=== PATIENT | male | born 1935 | race Caucasian/White ===

== ENCOUNTER 2020-10-04 21:35 | Inpatient (IN) | payer OTHER ==
[~2020-10-04] VITALS: Ht 180.3 cm; Wt 77.8 kg
[~2020-10-04 21:35] MED LIST: ASPI81CH43 PO; CLON0.5T10 PO; FOLITAB45 PO; MAGN241.4 PO; MET50T PO; OMEP20CA74 PO; PRAV20TA3 PO
[2020-10-04 22:43] LABS: Basophils # (auto) 0.1 10 ^3/uL (0-0.2); Basophils % (auto) 0.6 % (0.0-2.0); Eosinophils # (auto) 0.2 10 ^3/uL (0-0.8); Eosinophils % (auto) 1.8 % (0.0-7.0); Hemoglobin 11.9 g/dL (13.5-17.5); Lymphocytes # (auto) 0.8 10 ^3/uL (0.4-5.4); Lymphocytes % (auto) 8.1 % (10.0-50.0); Mean Corpuscular Hemoglobin 28.4 pg (28.0-32.0); Mean Corpuscular Hgb Conc. 33.2 g/dL (32.0-36.0); Mean Corpuscular Volume 85.4 fL (80.0-100.0); Monocytes # (auto) 0.8 10 ^3/uL (0-1.3); Monocytes % (auto) 7.7 % (0.0-12.0); Neutrophils # (auto) 8.5 10 ^3/uL (1.6-8.6); Neutrophils % (auto) 81.8 % (37.0-80.0); Nucleated Red Blood Cells % 0.1 %; Red Blood Cells 4.21 10^6/uL (4.5-5.90); Red Cell Distribution Width 16.5 % (11.8-14.3); White Blood Cell 10.4 10^3/uL (4.4-10.8)
[2020-10-04 23:09] LABS: Calcium 8.7 mg/dL (8.5-10.1); Potassium 4.2 mmol/L (3.5-5.1)
[2020-10-04 23:13] LABS: BUN/Creatinine Ratio 13.6
[2020-10-04 23:14] LABS: Bilirubin, Total 0.2 mg/dL (0.2-1.0)
[2020-10-05] MEDS ORDERED: fentaNYL CITRATE 100 MCG/2 ML VL IV ONE (03:45)
[2020-10-05] MEDS ORDERED: KETOROLAC TROMETH 30 MG/ML 1ML VIAL IV ONE (03:45)
[2020-10-05 04:14] LABS: INR 1.05 (0.9-1.15); Partial Thromboplastin Time 26.2 sec (23.6-33.0)
[2020-10-05] MEDS ORDERED: NITROGLYCERIN 0.4 MG SL TAB SL PRN (05:15)
[2020-10-05] MEDS ORDERED: ONDANSETRON HCL 4 MG/2 ML VIAL IV PRN (05:15)
[2020-10-05] MEDS ORDERED: MORPHINE SULFATE INJECTION 2 MG/2 ML SYRG IV PRN ×2 (05:15→06:30)
[2020-10-05] MEDS ORDERED: ACETAMINOPHEN 325 MG TAB PO PRN (05:15)
[2020-10-05] MEDS ORDERED: MORPHINE SULFATE 4 MG/ML SYR/VIAL ONE (08:16)
[2020-10-05] MEDS: MORPHINE SULFATE 4 MG/ML SYR/VIAL IV PRN ×3 (08:24→23:03)
[2020-10-05] MEDS: LEVOTHYROXINE SODIUM 50 MCG TAB PO SCH (08:36)
[2020-10-05] MEDS: AZITHROMYCIN 500MG/ 250ML 250 ML IV SCH (10:00)
[2020-10-05 10:45] LABS: Urine Bacteria FEW /hpf (None Seen); Urine Blood 1+ /uL (Negative); Urine Mucus FEW (None Seen); Urine Specific Gravity 1.026 (1.001-1.035); Urine WBC 3 /hpf (0 - 3)
[2020-10-05] MEDS: PANTOPRAZOLE 40 MG TAB PO SCH (11:11)
[2020-10-05] MEDS: DIGOXIN 0.125 MG TAB PO SCH (11:11)
[2020-10-05] MEDS: METOPROLOL SUCCINATE XL 50 MG TAB PO SCH (11:17)
[2020-10-05] MEDS: amLODIPine BESYLATE 5 MG TAB PO SCH (11:17)
[2020-10-05] MEDS: DONEPEZIL HYDROCHLORIDE 5 MG TAB PO SCH (22:29)
[2020-10-05] MEDS: ATORVASTATIN 20 MG TAB PO SCH (22:29)
[2020-10-06] MEDS: MORPHINE SULFATE 4 MG/ML SYR/VIAL IV PRN ×2 (03:49→22:25)
[2020-10-06] MEDS: HYDROcodone-ACET 5/325MG TAB PO PRN ×2 (06:32→13:08)
[2020-10-06 07:08] LABS: Basophils # (auto) 0.1 10 ^3/uL (0-0.2); Basophils % (auto) 0.9 % (0.0-2.0); Eosinophils # (auto) 0.6 10 ^3/uL (0-0.8); Eosinophils % (auto) 4.3 % (0.0-7.0); Hemoglobin 12.3 g/dL (13.5-17.5); Lymphocytes # (auto) 1.3 10 ^3/uL (0.4-5.4); Lymphocytes % (auto) 9.8 % (10.0-50.0); Mean Corpuscular Hemoglobin 28.5 pg (28.0-32.0); Mean Corpuscular Hgb Conc. 33.3 g/dL (32.0-36.0); Mean Corpuscular Volume 85.6 fL (80.0-100.0); Monocytes # (auto) 0.9 10 ^3/uL (0-1.3); Monocytes % (auto) 7.2 % (0.0-12.0); Neutrophils # (auto) 9.9 10 ^3/uL (1.6-8.6); Neutrophils % (auto) 77.8 % (37.0-80.0); Red Blood Cells 4.32 10^6/uL (4.5-5.90); Red Cell Distribution Width 16.6 % (11.8-14.3); White Blood Cell 12.8 10^3/uL (4.4-10.8)
[2020-10-06 07:24] LABS: BUN/Creatinine Ratio 18.3; Calcium 8.6 mg/dL (8.5-10.1); Potassium 4.3 mmol/L (3.5-5.1)
[2020-10-06] MEDS: LEVOTHYROXINE SODIUM 50 MCG TAB PO SCH (07:30)
[2020-10-06 10:30] VITALS: BP 158/71
[2020-10-06] MEDS: amLODIPine BESYLATE 5 MG TAB PO SCH (11:06)
[2020-10-06] MEDS: PANTOPRAZOLE 40 MG TAB PO SCH (11:06)
[2020-10-06] MEDS: METOPROLOL SUCCINATE XL 50 MG TAB PO SCH (11:07)
[2020-10-06] MEDS: AZITHROMYCIN 500MG/ 250ML 250 ML IV SCH (11:07)
[2020-10-06] MEDS: DIGOXIN 0.125 MG TAB PO SCH (11:07)
[2020-10-06 13:00] VITALS: BP 152/68
[2020-10-06 17:00] VITALS: BP 157/76
[2020-10-06 20:00] VITALS: BP 158/71
[2020-10-06] MEDS: DONEPEZIL HYDROCHLORIDE 5 MG TAB PO SCH (22:26)
[2020-10-06] MEDS: ATORVASTATIN 20 MG TAB PO SCH (22:26)
[2020-10-07 06:54] LABS: INR 1.02 (0.9-1.15)
[2020-10-07] MEDS: LEVOTHYROXINE SODIUM 50 MCG TAB PO SCH (07:00)
[2020-10-07 09:00] VITALS: BP 170/71
[2020-10-07] MEDS: DIGOXIN 0.125 MG TAB PO SCH (11:00)
[2020-10-07] MEDS: PANTOPRAZOLE 40 MG TAB PO SCH (11:00)
[2020-10-07] MEDS: METOPROLOL SUCCINATE XL 50 MG TAB PO SCH (11:02)
[2020-10-07] MEDS: AZITHROMYCIN 500MG/ 250ML 250 ML IV SCH (11:11)
[2020-10-07] MEDS: amLODIPine BESYLATE 5 MG TAB PO SCH (11:12)
[2020-10-07] MEDS ORDERED: VANCOMYCIN HCL 1000 MG VL ONE (11:46)
[2020-10-07] MEDS ORDERED: EPINEPHrine HCL 1 MG/1 ML AMP ONE (11:46)
[2020-10-07] MEDS ORDERED: TRANEXAMIC ACID 20 ML ONE (11:47)
[2020-10-07] MEDS ORDERED: TETRACAINE 1% INJ 2 ML VIAL IJ ONE (12:45)
[2020-10-07] MEDS ORDERED: MIDAZOLAM HCL 2MG/2ML 2ml VIAL (1mg/ml) ONE ×2 (12:48→13:20)
[2020-10-07] MEDS ORDERED: fentaNYL CITRATE 100 MCG/2 ML VL ONE (12:48)
[2020-10-07 12:52] VITALS: BP 151/114
[2020-10-07] MEDS ORDERED: DexAMETHasone SOD PHOS 10MG/1ML VIAL INJ ONE (13:20)
[2020-10-07] MEDS ORDERED: PROPOFOL 10 MG/ML 20 ML IV ONE (13:20)
[2020-10-07] MEDS ORDERED: HYDROmorphone HCL 2 MG/ML VL IV PRN (14:00)
[2020-10-07] MEDS ORDERED: hydrALAZINE HCL 20 MG/ML VL IV PRN (14:00)
[2020-10-07] MEDS ORDERED: ePHEDrine SULFATE 50 MG/ML AMP IV PRN (14:00)
[2020-10-07] MEDS ORDERED: MORPHINE SULFATE 4 MG/ML SYR/VIAL IV PRN (14:00)
[2020-10-07] MEDS ORDERED: ONDANSETRON HCL 4 MG/2 ML VIAL IV PRN (14:00)
[2020-10-07] MEDS ORDERED: MIDAZOLAM HCL 2MG/2ML 2ml VIAL (1mg/ml) IV PRN (14:00)
[2020-10-07] MEDS ORDERED: LABETALOL HCL 5 MG/ML 4ML SYRINGE IV PRN (14:00)
[2020-10-07 17:31] VITALS: BP 120/74
[2020-10-07] MEDS: LACTATED RINGER'S 1,000 ML IV SCH (17:49)
[2020-10-07] MEDS: KETOROLAC TROMETH 30 MG/ML 1ML VIAL IV SCH (19:03)
[2020-10-07 22:00] VITALS: BP 148/61
[2020-10-07] MEDS: HYDROcodone-ACET 5/325MG TAB PO PRN (22:49)
[2020-10-07] MEDS: ATORVASTATIN 20 MG TAB PO SCH (22:49)
[2020-10-07] MEDS: ceFAZolin 1GM/50ML 50 ML IV SCH (22:50)
[2020-10-07] MEDS: DONEPEZIL HYDROCHLORIDE 5 MG TAB PO SCH (22:50)
[2020-10-08] MEDS: KETOROLAC TROMETH 30 MG/ML 1ML VIAL IV SCH ×4 (00:26→18:00)
[2020-10-08] MEDS: LACTATED RINGER'S 1,000 ML IV SCH ×2 (01:08→10:03)
[2020-10-08 05:00] VITALS: BP 138/76
[2020-10-08 05:34] LABS: Basophils # (auto) 0 10 ^3/uL (0-0.2); Basophils % (auto) 0.1 % (0.0-2.0); Eosinophils # (auto) 0 10 ^3/uL (0-0.8); Eosinophils % (auto) 0.1 % (0.0-7.0); Hematocrit 35.1 % (41.0-53.0); INR 1.05 (0.9-1.15); Lymphocytes # (auto) 0.5 10 ^3/uL (0.4-5.4); Lymphocytes % (auto) 4.1 % (10.0-50.0); Mean Corpuscular Hemoglobin 28.9 pg (28.0-32.0); Mean Corpuscular Hgb Conc. 34.2 g/dL (32.0-36.0); Mean Corpuscular Volume 84.6 fL (80.0-100.0); Monocytes # (auto) 0.7 10 ^3/uL (0-1.3); Monocytes % (auto) 5.1 % (0.0-12.0); Neutrophils # (auto) 11.9 10 ^3/uL (1.6-8.6); Neutrophils % (auto) 90.6 % (37.0-80.0); Red Blood Cells 4.15 10^6/uL (4.5-5.90); Red Cell Distribution Width 16.1 % (11.8-14.3); White Blood Cell 13.1 10^3/uL (4.4-10.8)
[2020-10-08 05:38] LABS: BUN/Creatinine Ratio 27.2; Calcium 8.9 mg/dL (8.5-10.1); Potassium 4.7 mmol/L (3.5-5.1)
[2020-10-08] MEDS: ceFAZolin 1GM/50ML 50 ML IV SCH ×2 (06:52→14:28)
[2020-10-08] MEDS: LEVOTHYROXINE SODIUM 50 MCG TAB PO SCH (06:53)
[2020-10-08 09:00] VITALS: BP 147/72
[2020-10-08] MEDS ORDERED: ENOXAPARIN SOD 40 MG/0.4 ML SYRINGE SC SCH (10:00)
[2020-10-08] MEDS: AZITHROMYCIN 500MG/ 250ML 250 ML IV SCH (10:02)
[2020-10-08] MEDS: amLODIPine BESYLATE 5 MG TAB PO SCH (10:03)
[2020-10-08] MEDS: METOPROLOL SUCCINATE XL 50 MG TAB PO SCH (10:06)
[2020-10-08] MEDS: DIGOXIN 0.125 MG TAB PO SCH (10:06)
[2020-10-08] MEDS: PANTOPRAZOLE 40 MG TAB PO SCH (10:06)
[2020-10-08 12:40] VITALS: BP 126/50
[2020-10-08 17:00] VITALS: BP 112/72
== END 2020-10-08 18:10 | disposition hospice, home (50) | DRG 522 ==
LOC: EDBD 21:35 → ER 21:37 → TELE 10-05 05:15 → TELE-WESTW 10-06 08:10
PROVIDERS: ADMIT Nurse Practitioner; ATTEND Internal Medicine
PROC: 0SRS0J9 Replacement of Left Hip Joint, Femoral Surface with Synthetic Substitute, Cemented, Open Approach (ICD-10-PCS; principal; 2020-10-07 13:15)
DX: S72.112A Displaced fracture of greater trochanter of left femur, initial encounter for closed fracture (principal); D68.9 Coagulation defect, unspecified; F03.90 Unspecified dementia, unspecified severity, without behavioral disturbance, psychotic disturbance, mood disturbance, and anxiety; Z20.822 Contact with and (suspected) exposure to COVID-19; I50.9 Heart failure, unspecified; W01.0XXA Fall on same level from slipping, tripping and stumbling without subsequent striking against object, initial encounter; E78.5 Hyperlipidemia, unspecified; K21.9 Gastro-esophageal reflux disease without esophagitis; E78.00 Pure hypercholesterolemia, unspecified; I73.9 Peripheral vascular disease, unspecified; I11.0 Hypertensive heart disease with heart failure; I25.10 Atherosclerotic heart disease of native coronary artery without angina pectoris; I48.91 Unspecified atrial fibrillation; Y93.89 Activity, other specified; Y92.89 Other specified places as the place of occurrence of the external cause; Y99.8 Other external cause status; Z79.01 Long term (current) use of anticoagulants; Z87.891 Personal history of nicotine dependence; Z95.0 Presence of cardiac pacemaker; Z95.1 Presence of aortocoronary bypass graft; Z95.5 Presence of coronary angioplasty implant and graft; I25.2 Old myocardial infarction; Z87.01 Personal history of pneumonia (recurrent)
CPT/HCPCS: 36415; 71045; 72170; 73502; 80048; 80053; 81001; 84484; 85025; 85610; 85730; 86850; 86900; 86901; 87426; 93306; 96365; 96366; 96375; 96376; 97163; G0378; J0171; J0690; J1100; J1885; J2250; J2704

== ENCOUNTER 2020-10-18 19:01 | Inpatient (IN) | payer OTHER ==
[~2020-10-18] VITALS: Ht 165.1 cm; Wt 74.7 kg
[2020-10-18] MEDS ORDERED: HYDROmorphone HCL 2 MG/ML VL IV ONE (19:15)
[2020-10-18] MEDS ORDERED: KETOROLAC TROMETH 30 MG/ML 1ML VIAL IV ONE (19:15)
[2020-10-18 19:32] LABS: Basophils # (auto) 0.1 10 ^3/uL (0-0.2); Eosinophils # (auto) 0.3 10 ^3/uL (0-0.8); Hematocrit 28.3 % (41.0-53.0); Lymphocytes # (auto) 1.8 10 ^3/uL (0.4-5.4); Monocytes % (auto) 10.2 % (0.0-12.0); White Blood Cell 10.1 10^3/uL (4.4-10.8)
[2020-10-18 19:34] LABS: Basophils % (auto) 1.3 % (0.0-2.0); Eosinophils % (auto) 3.2 % (0.0-7.0); Hemoglobin 9.5 g/dL (13.5-17.5); Lymphocytes % (auto) 17.6 % (10.0-50.0); Mean Corpuscular Hemoglobin 27.9 pg (28.0-32.0); Mean Corpuscular Hgb Conc. 33.4 g/dL (32.0-36.0); Mean Corpuscular Volume 83.5 fL (80.0-100.0); Neutrophils # (auto) 6.8 10 ^3/uL (1.6-8.6); Neutrophils % (auto) 67.7 % (37.0-80.0); Red Cell Distribution Width 16.2 % (11.8-14.3)
[2020-10-18 19:50] LABS: Albumin 2.2 g/dL (3.4-5.0); Anion Gap 6 (5-15); Blood Urea Nitrogen 28 mg/dL (7-18); Carbon Dioxide 24 mmol/L (21-32); Chloride 107 mmol/L (98-107); Glucose 93 mg/dL (74-106); Potassium 4.4 mmol/L (3.5-5.1); Sodium 137 mmol/L (136-145)
[2020-10-18 19:51] LABS: BUN/Creatinine Ratio 23.3; GFR African American 74 mL/min; GFR Non-African American 61 mL/min; INR 1.09 (0.9-1.15); Partial Thromboplastin Time 30.7 sec (23.6-33.0)
[2020-10-18 19:57] LABS: Alanine Aminotransferase 33 U/L (16-61); Alkaline Phosphatase 85 U/L (45-117); Aspartate Aminotransferase 25 U/L (15-37); Bilirubin, Total 0.4 mg/dL (0.2-1.0); Total Protein 6.8 g/dL (6.4-8.2)
[2020-10-19] MEDS ORDERED: PROPOFOL 10 MG/ML 20 ML IV ONE (01:45)
[2020-10-19] MEDS ORDERED: SODIUM CHLORIDE 0.9% 1,000 ML IV ONE (01:45)
[2020-10-19] MEDS ORDERED: PROPOFOL 100 ML IV ONE (01:48)
[2020-10-19] MEDS ORDERED: HYDROmorphone HCL 2 MG/ML VL IV ONE (02:45)
[2020-10-19 05:24] LABS: Urine Bacteria FEW /hpf (None Seen); Urine Blood 2+ /uL (Negative); Urine Hyaline Cast MOD /lpf (0 - 2); Urine Mucus FEW (None Seen); Urine Specific Gravity 1.023 (1.001-1.035); Urine WBC 3 /hpf (0 - 3)
[2020-10-19] MEDS ORDERED: ONDANSETRON HCL 4 MG/2 ML VIAL IV PRN (07:00)
[2020-10-19] MEDS ORDERED: NITROGLYCERIN 0.4 MG SL TAB SL PRN (07:00)
[2020-10-19] MEDS ORDERED: MORPHINE SULFATE INJECTION 2 MG/ML SYRG IV PRN (07:00)
[2020-10-19] MEDS: SODIUM CHLORIDE 0.9% 1,000 ML IV SCH ×2 (08:02→18:45)
[2020-10-19] MEDS: MAGNESIUM OXIDE 400 MG TAB PO SCH (08:04)
[2020-10-19] MEDS: LEVOTHYROXINE SODIUM 50 MCG TAB PO SCH (09:30)
[2020-10-19] MEDS: PANTOPRAZOLE 40 MG TAB PO SCH (09:52)
[2020-10-19] MEDS: METOPROLOL SUCCINATE XL 50 MG TAB PO SCH (09:53)
[2020-10-19] MEDS ORDERED: METOPROLOL TARTRATE 25 MG TAB PO SCH (10:00)
[2020-10-19] MEDS ORDERED: PANTOPRAZOLE 40 MG TAB PO SCH (10:00)
[2020-10-19] MEDS: MORPHINE SULFATE INJECTION 2 MG/ML SYRG IV PRN ×2 (10:47→15:00)
[2020-10-19 13:00] VITALS: BP 141/56
[2020-10-19] MEDS ORDERED: CYCLOBENZAPRINE HCL 10 MG TAB PO PRN (15:30)
[2020-10-19 17:00] VITALS: BP 158/62
[2020-10-19] MEDS: DONEPEZIL HYDROCHLORIDE 5 MG TAB PO SCH (21:52)
[2020-10-19] MEDS: PRIMIDONE 50 MG TAB PO SCH (21:53)
[2020-10-19] MEDS: ATORVASTATIN 20 MG TAB PO SCH (21:53)
[2020-10-19 22:00] VITALS: BP 146/58
[2020-10-19] MEDS ORDERED: PRAVASTATIN SODIUM 20 MG TAB PO SCH (22:00)
[2020-10-20] VITALS (8 sets, daily range): BP systolic 127–167; BP diastolic 59–73
[2020-10-20] MEDS: SODIUM CHLORIDE 0.9% 1,000 ML IV SCH ×3 (05:54→21:48)
[2020-10-20 06:42] LABS: Basophils # (auto) 0.1 10 ^3/uL (0-0.2); Eosinophils # (auto) 0.6 10 ^3/uL (0-0.8); Mean Corpuscular Hemoglobin 28.2 pg (28.0-32.0); Neutrophils # (auto) 9.7 10 ^3/uL (1.6-8.6); White Blood Cell 12.4 10^3/uL (4.4-10.8)
[2020-10-20 06:45] LABS: Basophils % (auto) 0.4 % (0.0-2.0); Eosinophils % (auto) 4.5 % (0.0-7.0); Hematocrit 23.4 % (41.0-53.0); Hemoglobin 7.8 g/dL (13.5-17.5); Lymphocytes # (auto) 1.1 10 ^3/uL (0.4-5.4); Mean Corpuscular Hgb Conc. 33.6 g/dL (32.0-36.0); Mean Corpuscular Volume 84.2 fL (80.0-100.0); Monocytes % (auto) 8.1 % (0.0-12.0); Red Blood Cells 2.78 10^6/uL (4.5-5.90); Red Cell Distribution Width 16.2 % (11.8-14.3)
[2020-10-20 06:54] LABS: INR 1.09 (0.9-1.15); Partial Thromboplastin Time 30.8 sec (23.6-33.0)
[2020-10-20] MEDS: LEVOTHYROXINE SODIUM 50 MCG TAB PO SCH (07:00)
[2020-10-20 07:02] LABS: Potassium 4.5 mmol/L (3.5-5.1)
[2020-10-20 07:06] LABS: BUN/Creatinine Ratio 22.8
[2020-10-20] MEDS ORDERED: ENOXAPARIN SOD 40 MG/0.4 ML SYRINGE SC SCH (10:00)
[2020-10-20] MEDS: MAGNESIUM OXIDE 400 MG TAB PO SCH (10:00)
[2020-10-20] MEDS: PANTOPRAZOLE 40 MG TAB PO SCH (10:00)
[2020-10-20] MEDS: METOPROLOL SUCCINATE XL 50 MG TAB PO SCH (10:00)
[2020-10-20] MEDS ORDERED: fentaNYL CITRATE 100 MCG/2 ML VL ONE (10:17)
[2020-10-20] MEDS ORDERED: MIDAZOLAM HCL 2MG/2ML 2ml VIAL (1mg/ml) ONE (10:18)
[2020-10-20] MEDS ORDERED: DexAMETHasone SOD PHOS 10MG/1ML VIAL INJ ONE (10:25)
[2020-10-20] MEDS ORDERED: PROPOFOL 10 MG/ML 20 ML IV ONE (10:25)
[2020-10-20] MEDS ORDERED: LABETALOL HCL 5 MG/ML 4ML SYRINGE IV PRN (11:00)
[2020-10-20] MEDS ORDERED: ePHEDrine SULFATE 50 MG/ML AMP IV PRN (11:00)
[2020-10-20] MEDS ORDERED: ONDANSETRON HCL 4 MG/2 ML VIAL IV PRN (11:00)
[2020-10-20] MEDS ORDERED: MIDAZOLAM HCL 2MG/2ML 2ml VIAL (1mg/ml) IV PRN (11:00)
[2020-10-20] MEDS ORDERED: MORPHINE SULFATE 4 MG/ML SYR/VIAL IV PRN (11:00)
[2020-10-20] MEDS: PRIMIDONE 50 MG TAB PO SCH (21:34)
[2020-10-20] MEDS: ATORVASTATIN 20 MG TAB PO SCH (21:34)
[2020-10-20] MEDS: DONEPEZIL HYDROCHLORIDE 5 MG TAB PO SCH (21:34)
[2020-10-21 05:10] VITALS: BP 132/67
[2020-10-21 06:00] LABS: Eosinophils # (auto) 0 10 ^3/uL (0-0.8); Hemoglobin 8.1 g/dL (13.5-17.5); Monocytes # (auto) 1.1 10 ^3/uL (0-1.3); Red Cell Distribution Width 16.1 % (11.8-14.3)
[2020-10-21 06:06] LABS: Basophils # (auto) 0 10 ^3/uL (0-0.2); Basophils % (auto) 0.1 % (0.0-2.0); Hematocrit 25.2 % (41.0-53.0); Lymphocytes # (auto) 0.8 10 ^3/uL (0.4-5.4); Mean Corpuscular Hemoglobin 28.9 pg (28.0-32.0); Mean Corpuscular Hgb Conc. 32.2 g/dL (32.0-36.0); Mean Corpuscular Volume 89.8 fL (80.0-100.0); Monocytes % (auto) 7.6 % (0.0-12.0); Neutrophils % (auto) 87.3 % (37.0-80.0); White Blood Cell 14.9 10^3/uL (4.4-10.8)
[2020-10-21] MEDS: LEVOTHYROXINE SODIUM 50 MCG TAB PO SCH (06:08)
[2020-10-21 06:42] LABS: BUN/Creatinine Ratio 30.5
[2020-10-21 09:00] VITALS: BP 141/57
[2020-10-21] MEDS: PANTOPRAZOLE 40 MG TAB PO SCH (09:23)
[2020-10-21] MEDS: MAGNESIUM OXIDE 400 MG TAB PO SCH (09:23)
[2020-10-21] MEDS: METOPROLOL SUCCINATE XL 50 MG TAB PO SCH (09:23)
[2020-10-21] MEDS: SODIUM CHLORIDE 0.9% 1,000 ML IV SCH ×2 (09:24→18:32)
[2020-10-21 12:32] VITALS: BP 127/57
[2020-10-21 17:17] VITALS: BP 132/62
[2020-10-21] MEDS: DONEPEZIL HYDROCHLORIDE 5 MG TAB PO SCH (21:04)
[2020-10-21] MEDS: ATORVASTATIN 20 MG TAB PO SCH (21:05)
[2020-10-21] MEDS: PRIMIDONE 50 MG TAB PO SCH (21:05)
[2020-10-21 22:00] VITALS: BP 141/55
[2020-10-22 05:00] VITALS: BP 122/59
[2020-10-22] MEDS: SODIUM CHLORIDE 0.9% 1,000 ML IV SCH ×2 (05:11→17:24)
[2020-10-22] MEDS: LEVOTHYROXINE SODIUM 50 MCG TAB PO SCH (06:20)
[2020-10-22 08:00] VITALS: BP 92/55
[2020-10-22] MEDS: METOPROLOL SUCCINATE XL 50 MG TAB PO SCH (10:38)
[2020-10-22] MEDS: HYDROcodone-ACET 10/325MG TAB PO PRN ×2 (10:38→20:52)
[2020-10-22] MEDS: MAGNESIUM OXIDE 400 MG TAB PO SCH (10:38)
[2020-10-22] MEDS: PANTOPRAZOLE 40 MG TAB PO SCH (10:38)
[2020-10-22 12:00] VITALS: BP 134/51
[2020-10-22 16:00] VITALS: BP 122/50
[2020-10-22] MEDS: DONEPEZIL HYDROCHLORIDE 5 MG TAB PO SCH (20:51)
[2020-10-22] MEDS: ATORVASTATIN 20 MG TAB PO SCH (20:51)
[2020-10-22] MEDS: PRIMIDONE 50 MG TAB PO SCH (20:52)
[2020-10-22 22:00] VITALS: BP 115/45
[2020-10-23] MEDS: SODIUM CHLORIDE 0.9% 1,000 ML IV SCH ×3 (04:13→12:52)
[2020-10-23 05:00] VITALS: BP 126/65
[2020-10-23] MEDS: LEVOTHYROXINE SODIUM 50 MCG TAB PO SCH (06:28)
[2020-10-23 09:00] VITALS: BP 150/68
[2020-10-23] MEDS: HYDROcodone-ACET 10/325MG TAB PO PRN (09:22)
[2020-10-23] MEDS: METOPROLOL SUCCINATE XL 50 MG TAB PO SCH (09:31)
[2020-10-23] MEDS: MAGNESIUM OXIDE 400 MG TAB PO SCH (09:31)
[2020-10-23] MEDS: PANTOPRAZOLE 40 MG TAB PO SCH (09:31)
[2020-10-23 12:59] VITALS: BP 139/47
[2020-10-23 13:35] VITALS: BP 150/68
== END 2020-10-23 16:10 | DRG 559 ==
LOC: EDUNIT# 19:01 → EDBD 19:01 → ER 19:03 → TELE 10-19 07:20 → TELE-CENTR 10-19 12:01
PROVIDERS: ADMIT Hospitalist; ATTEND Hospitalist
PROC: BQ11ZZZ Fluoroscopy of Left Hip (ICD-10-PCS; 2020-10-20)
PROC: 0SSB3ZZ Reposition Left Hip Joint, Percutaneous Approach (ICD-10-PCS; principal; 2020-10-20 10:16)
DX: T84.021A Dislocation of internal left hip prosthesis, initial encounter (principal); S32.402A Unspecified fracture of left acetabulum, initial encounter for closed fracture; F02.81 Dementia in other diseases classified elsewhere, unspecified severity, with behavioral disturbance; M25.052 Hemarthrosis, left hip; W01.0XXA Fall on same level from slipping, tripping and stumbling without subsequent striking against object, initial encounter; G30.9 Alzheimer's disease, unspecified; G20 Parkinson's disease; I25.10 Atherosclerotic heart disease of native coronary artery without angina pectoris; I48.91 Unspecified atrial fibrillation; Y79.2 Prosthetic and other implants, materials and accessory orthopedic devices associated with adverse incidents; K21.9 Gastro-esophageal reflux disease without esophagitis; E03.9 Hypothyroidism, unspecified; E78.5 Hyperlipidemia, unspecified; I12.9 Hypertensive chronic kidney disease with stage 1 through stage 4 chronic kidney disease, or unspecified chronic kidney disease; Z20.822 Contact with and (suspected) exposure to COVID-19; N18.30 Chronic kidney disease, stage 3 unspecified; Z82.49 Family history of ischemic heart disease and other diseases of the circulatory system; Z79.01 Long term (current) use of anticoagulants; Z86.73 Personal history of transient ischemic attack (TIA), and cerebral infarction without residual deficits; Z87.891 Personal history of nicotine dependence; Z95.0 Presence of cardiac pacemaker; Z95.1 Presence of aortocoronary bypass graft; Z95.5 Presence of coronary angioplasty implant and graft; Y92.098 Other place in other non-institutional residence as the place of occurrence of the external cause; Y93.89 Activity, other specified
CPT/HCPCS: 36415; 51702; 70450; 71045; 72192; 73501; 73502; 76000; 80048; 80053; 81001; 83880; 84484; 85025; 85610; 85730; 86850; 86900; 86901; 86920; 87081; 87426; 93005; 96361; 96374; 96375; 96376; 97110; 97116; 97163; 97530; G0378; J1100; J1885; J2250; J2704

== ENCOUNTER 2020-12-25 00:37 | Emergency (ER) | payer OTHER ==
[~2020-12-25] VITALS: Ht 165.1 cm; Wt 74.4 kg
[2020-12-25] MEDS ORDERED: PROPOFOL 10 MG/ML 20 ML IV ONE (01:00)
[2020-12-25] MEDS ORDERED: ONDANSETRON HCL 4 MG/2 ML VIAL IV ONE (01:00)
[2020-12-25] MEDS ORDERED: HYDROmorphone HCL 2 MG/ML VL IV ONE (01:00)
[2020-12-25] MEDS ORDERED: PROPOFOL 100 ML IV ONE (01:11)
[2020-12-25 10:41] VITALS: BP 136/78
[2020-12-26] MEDS ORDERED: MORPHINE SULFATE 4 MG/ML SYR/VIAL ONE (11:17)
[2020-12-26] MEDS ORDERED: ONDANSETRON HCL 4 MG/2 ML VIAL ONE (11:17)
[2020-12-26] MEDS ORDERED: CEFD300C2 PO (17:34)
== END 2020-12-25 11:24 | disposition home or self-care (01) ==
LOC: EDBD 00:37 → ER 00:39
DX: S73.005A Unspecified dislocation of left hip, initial encounter (principal); K21.9 Gastro-esophageal reflux disease without esophagitis; I10 Essential (primary) hypertension; Z87.891 Personal history of nicotine dependence; Z86.73 Personal history of transient ischemic attack (TIA), and cerebral infarction without residual deficits; W18.39XA Other fall on same level, initial encounter; Y93.89 Activity, other specified; Y92.89 Other specified places as the place of occurrence of the external cause; Y99.8 Other external cause status
CPT/HCPCS: 27250; 72170; 73501; 73502; 96374; 96375; 99152; 99153; 99285; J1170; J2405; J2704

== ENCOUNTER 2020-12-26 08:50 | Emergency (ER) | payer OTHER ==
[~2020-12-26] VITALS: Ht 172.7 cm; Wt 63.5 kg
[2020-12-26 09:46] LABS: Basophils # (auto) 0.1 10 ^3/uL (0-0.2); Basophils % (auto) 0.9 % (0.0-2.0); Eosinophils # (auto) 0.3 10 ^3/uL (0-0.8); Hematocrit 30.7 % (41.0-53.0); Hemoglobin 9.9 g/dL (13.5-17.5); Lymphocytes # (auto) 1.2 10 ^3/uL (0.4-5.4); Lymphocytes % (auto) 15.1 % (10.0-50.0); Mean Corpuscular Hemoglobin 27.1 pg (28.0-32.0); Mean Corpuscular Hgb Conc. 32.2 g/dL (32.0-36.0); Mean Corpuscular Volume 84.1 fL (80.0-100.0); Monocytes % (auto) 12.6 % (0.0-12.0); Neutrophils # (auto) 5.2 10 ^3/uL (1.6-8.6); Neutrophils % (auto) 67.4 % (37.0-80.0); Red Blood Cells 3.65 10^6/uL (4.5-5.90); Red Cell Distribution Width 17.5 % (11.8-14.3); White Blood Cell 7.7 10^3/uL (4.4-10.8)
[2020-12-26 10:05] LABS: INR 1.08 (0.9-1.15); Partial Thromboplastin Time 27.7 sec (23.6-33.0)
[2020-12-26 10:07] LABS: Albumin 1.8 g/dL (3.4-5.0); Calcium 6.8 mg/dL (8.5-10.1); Magnesium 1.9 mg/dL (1.6-2.6); Potassium 3.9 mmol/L (3.5-5.1)
[2020-12-26 10:22] LABS: Bilirubin, Total 0.3 mg/dL (0.2-1.0); Total Protein 5.6 g/dL (6.4-8.2)
[2020-12-26] MEDS ORDERED: MORPHINE SULFATE 4 MG/ML SYR/VIAL IV ONE (10:45)
[2020-12-26] MEDS ORDERED: ONDANSETRON HCL 4 MG/2 ML VIAL IV ONE (11:15)
[2020-12-26 11:23] LABS: Urine Bacteria NONE SEEN /hpf (None Seen); Urine Blood 3+ /uL (Negative); Urine Hyaline Cast FEW /lpf (0 - 2); Urine Mucus FEW (None Seen); Urine WBC 85 /hpf (0 - 3)
[2020-12-26] MEDS ORDERED: KETAMINE 50mg/ML 10ml Vial (500mg/10ml) IV ONE ×2 (12:15→17:00)
[2020-12-26] MEDS ORDERED: cefTRIAXone 1GM/50ML D5W 50 ML IV ONE (13:45)
[2020-12-26] MEDS ORDERED: CEFD300C2 PO (17:34)
[2020-12-26 17:35] VITALS: BP 158/77
== END 2020-12-26 18:46 | disposition home or self-care (01) ==
LOC: ER 08:50 → EDBD 08:50 → ER 18:46
DX: S73.005A Unspecified dislocation of left hip, initial encounter (principal); W18.2XXA Fall in (into) shower or empty bathtub, initial encounter; Y93.89 Activity, other specified; Y92.89 Other specified places as the place of occurrence of the external cause; Y99.8 Other external cause status
CPT/HCPCS: 27250; 36415; 70450; 71045; 72125; 72192; 73501; 74176; 80053; 81001; 83690; 83735; 84484; 85025; 85610; 85730; 93005; 96365; 96375; 99285; J0696; J2270; J2405